=== PATIENT | female | born 1990 | race Two or more races ===

== ENCOUNTER 2024-06-23 06:13 | Inpatient (IN) | payer OTHER ==
[2024-06-19 11:34] LABS: URINE APPEARANCE Clear; URINE BILIRRUBIN Negative (NEGATIVE); URINE BLOOD Negative; URINE COLOR Yellow; URINE GLUCOSE Negative (NEGATIVE); URINE KETONE Negative (NEGATIVE); URINE LEUKOCYTE Negative; URINE NITRATE Negative; URINE PROTEIN Negative (NEGATIVE); URINE UROBILINOGEN 0.2 E.U./dl
[2024-06-19 11:38] LABS: HEMOGLOBIN 10.3 g/dL (12.0-15.00); MEAN CELL VOLUME 75.5 fL (80.00-100.00); MEAN CORPUSCULAR HEMOGLOBIN 24.3 pg (27.00-32.0); MEAN CORPUSCULAR HGB CONC 32.2 g/dl (32.0-36.0); PLATELET COUNT 232 K/uL (150-450); RED BLOOD COUNT 4.23 M/uL (4.00-6.00); RED CELL DISTRIBUTION WIDTH 17.4 % (11.5-14.5)
[2024-06-19 11:40] LABS: URINE BACTERIA 1046.4 uL (0.0-1933); URINE RBC 30.9 uL (0.0-20.8); URINE WBC 19.1 uL (0.0-23.2)
[2024-06-19 12:20] LABS: INR 1.03; PARTIAL THROMBOPLASTIN TIME 26.5 SECONDS (22.0-34.0); PROTHROMBIN TIME 11.2 SECONDS (9.0-11.5)
[2024-06-19 12:39] LABS: BILIRUBIN TOTAL 0.71 mg/dL (0.3-1.2); CALCIUM 8.8 mg/dL (8.5-10.1); CREATININE SERUM 0.6 mg/dL (0.55-1.02); GFR 114.43; GLOBULINA 3.4 G/DL (2.4-3.5); POTASSIUM 3.94 mEq/L (3.5-5.1); TOTAL PROTEIN 7.4 gm/dL (6.4-8.2)
[2024-06-19 15:15] LABS: RH POSITIVE
[~2024-06-23] VITALS: Ht 162.6 cm; Wt 68.0 kg
[~2024-06-23 06:13] MED LIST: SYNTHROID125 MCG PO
[2024-06-23] MEDS ORDERED: EPINEPHRINE HCL/PF 1 MG/ML AMPUL ONE (09:00)
[2024-06-23] MEDS ORDERED: BUPIVACAINE HCL/MPF 0.5% 30ML VIAL ONE (09:10)
[2024-06-23] MEDS ORDERED: CEFAZOLIN SODIUM 1,000 MG VIAL ONE ×2 (09:11→12:04)
[2024-06-23] MEDS ORDERED: LIDOCAINE HCL 1%/EPINEPHRINE 20ML VIAL IJ ONE (09:11)
[2024-06-23] MEDS ORDERED: SUGAMMADEX SODIUM 200 MG/2 ML VIAL IV ONE (10:52)
[2024-06-23] MEDS ORDERED: ONDANSETRON HCL 2 MG/ML VIAL IV PRN (11:15)
[2024-06-23] MEDS ORDERED: MORPHINE SULFATE 4 MG/ML VIAL IV PRN (11:15)
[2024-06-23] MEDS ORDERED: RINGERS SOLUTION,LACTATED 1,000 ML IV SCH (11:30)
[2024-06-23] MEDS ORDERED: CEFAZOLIN SODIUM 1,000 MG VIAL IV SCH (12:00)
[2024-06-23] MEDS ORDERED: MORPHINE SULFATE 4 MG/ML VIAL IV ONE (13:00)
[2024-06-23 13:10] LABS: ALBUMIN 3.4 gm/dL (3.4-5.0); BILIRUBIN TOTAL 0.77 mg/dL (0.3-1.2); CALCIUM 8.2 mg/dL (8.5-10.1); CREATININE SERUM 0.64 mg/dL (0.55-1.02); GFR 106.22; GLOBULINA 3.1 G/DL (2.4-3.5); POTASSIUM 3.86 mEq/L (3.5-5.1); TOTAL PROTEIN 6.5 gm/dL (6.4-8.2); TSH 3.68 uIU/mL (0.358-3.74)
[2024-06-23] MEDS ORDERED: MEPERIDINE HCL/PF 25 MG/ML VIAL IM ONE (15:45)
[2024-06-23 16:32] LABS: HEMATOCRIT 27.3 % (36.0-45.00); HEMOGLOBIN 8.8 g/dL (12.0-15.00); MEAN CELL VOLUME 76.5 fL (80.00-100.00); MEAN CORPUSCULAR HEMOGLOBIN 24.6 pg (27.00-32.0); MEAN CORPUSCULAR HGB CONC 32.3 g/dl (32.0-36.0); PLATELET COUNT 197 K/uL (150-450); RED BLOOD COUNT 3.57 M/uL (4.00-6.00); RED CELL DISTRIBUTION WIDTH 17.2 % (11.5-14.5)
[2024-06-23] MEDS ORDERED: SOD FERRIC GLUC COMPLX/SUCROSE 62.5 MG/5 ML AMPUL IV NR (18:00)
[2024-06-23] MEDS ORDERED: Cyanocobalamin/Mecobalamin 1 TAB.SL SL NR (18:00)
[2024-06-23 18:38] VITALS: BP 98/50
[2024-06-23] MEDS ORDERED: ACETAMINOPHEN 500 MG GEL..CAP PO PRN (19:00)
[2024-06-23] MEDS ORDERED: GABAPENTIN 300 MG CAPSULE PO SCH (21:00)
[2024-06-23] MEDS ORDERED: FAMOTIDINE/PF 20 MG/2 ML VIAL IV SCH (21:00)
[2024-06-23 21:39] LABS: HEMOGLOBIN 9.3 g/dL (12.0-15.00); MEAN CELL VOLUME 74.7 fL (80.00-100.00); MEAN CORPUSCULAR HEMOGLOBIN 24.7 pg (27.00-32.0); MEAN CORPUSCULAR HGB CONC 33.1 g/dl (32.0-36.0); PLATELET COUNT 210 K/uL (150-450); RED BLOOD COUNT 3.76 M/uL (4.00-6.00); RED CELL DISTRIBUTION WIDTH 17.4 % (11.5-14.5)
[2024-06-24 00:29] VITALS: BP 95/57; O2SAT 100
[2024-06-24 05:00] VITALS: O2SAT 97
[2024-06-24] MEDS ORDERED: ACETAMINOPHEN 325 MG TABLET PO PRN (07:15)
[2024-06-24] MEDS ORDERED: TRAMADOL HCL 50 MG TABLET PO PRN (07:15)
[2024-06-24] MEDS ORDERED: ENOXAPARIN SODIUM 40 MG/0.4 ML SYRINGE SUBCUTANEO SCH (09:00)
[2024-06-24 09:40] VITALS: BP 97/63; O2SAT 99
[2024-06-24 16:00] VITALS: BP 103/54; O2SAT 100
[2024-06-24] MEDS ORDERED: SOD FERRIC GLUC COMPLX/SUCROSE 62.5 MG in 0.9 % SODIUM CHLORIDE 50 ML IV SCH (17:00)
[2024-06-24] MEDS ORDERED: Cyanocobalamin/Mecobalamin 1 TAB.SL SL SCH (17:00)
[2024-06-24 17:35] VITALS: O2SAT 100
[2024-06-24 20:23] VITALS: O2SAT 90
[2024-06-25 01:00] VITALS: O2SAT 87
[2024-06-25 03:28] VITALS: BP 92/50
[2024-06-25] MEDS ORDERED: LEVOTHYROXINE SODIUM 125 MCG TABLET PO STA (07:25)
[2024-06-25] MEDS ORDERED: TRAMADOL HCL50 MG PO (08:04)
[2024-06-25] MEDS ORDERED: SURFAK240 M1 PO (08:04)
[2024-06-25] MEDS ORDERED: MAXFE CAPLET1 EAC1 PO (08:04)
[2024-06-25] MEDS ORDERED: GABAPENTIN300 MG PO (08:04)
[2024-06-25 09:11] VITALS: BP 99/53
[2024-06-25 09:18] VITALS: O2SAT 97
[2024-06-26] MEDS ORDERED: LEVOTHYROXINE SODIUM 125 MCG TABLET PO SCH (06:00)
== END 2024-06-25 12:49 | disposition home or self-care (01) | DRG 743 ==
LOC: CIR.AMB 06:13 → O/R 11:45 → SURH 11:45 → OB/GYN 12:01 → SURH 13:52 → CIR.AMB 14:00 → SURH 06-25 12:49
PROVIDERS: Internal Medicine Geriatric Medicine; ADMIT Obstetrics & Gynecology Gynecology; ATTEND Obstetrics & Gynecology Gynecology
PROC: B246ZZZ Ultrasonography of Right and Left Heart (ICD-10-PCS; 2024-06-23)
PROC: 4A12X4Z Monitoring of Cardiac Electrical Activity, External Approach (ICD-10-PCS; 2024-06-23)
PROC: 0UB90ZZ Excision of Uterus, Open Approach (ICD-10-PCS; principal; 2024-06-23 08:45)
DX: D25.1 Intramural leiomyoma of uterus (principal); D25.2 Subserosal leiomyoma of uterus; E03.9 Hypothyroidism, unspecified; D64.9 Anemia, unspecified; R74.8 Abnormal levels of other serum enzymes